=== PATIENT | female | born 1990 | race Caucasian/White ===

== ENCOUNTER 2016-12-06 13:20 | Emergency (ER) | payer MEDICAID ==
[2016-12-06] MEDS ORDERED: Bacitracin Oint 1 GM U/D Packet TOP ONE (13:37)
[2016-12-06] MEDS ORDERED: Diphtheria,Pertussis(Acell),Tetanus Vaccine 0.5 ML SDV IM ONE (13:37)
[2016-12-06 13:40] VITALS: BP 130/77
[2016-12-06] MEDS ORDERED: Lidocaine 1% with EPINEPHrine 1:100,000 50 ML MDV SUBCUT SCH (13:45)
--- NOTE | 2016-12-06 14:26 | EDM.PDOC ---
ED HPI GENERAL MEDICAL PROBLEM - General Chief Complaint: Laceration Stated Complaint: CUT LT WRIST ON GLASS Time Seen by Provider: 12/06/16 14:21 Source of Information: Reports: Patient, Family (Mom) History Limitations: Reports: No Limitations - History of Present Illness INITIAL COMMENTS - FREE TEXT/NARRATIVE: Pt was cut by glass out of a picture frame today. Unsure of tetanus status. Onset: Today Onset Date: 12/06/16 Onset Time: 12:30 Location: Reports: Upper Extremity, Left Quality: Reports: Burning Severity: Moderate Improves with: Reports: None Worsens with: Reports: None Context: Reports: Trauma Associated Symptoms: Reports: No Other Symptoms - Related Data Allergies Allergy/AdvReac Type Severity Reaction Status Date / Time No Known Allergies Allergy Verified 12/06/16 13:35 Home Meds: Home Meds NK [No Known Home Meds] 09/02/14 [History] Past Medical History - Past Surgical History GI Surgical History: Reports: Appendectomy Female Surgical History: Reports: Section Social & Family History - Tobacco Use Smoking Status *Q: Current Every Day Smoker Years of Tobacco use: 5 Packs/Tins Daily: 0.5 - Alcohol Use Days Per Week of Alcohol Use: 0 - Recreational Drug Use Recreational Drug Use: Yes Recreational Drug Type: Reports: Marijuana/Hashish ED ROS GENERAL - Review of Systems Review Of Systems: See Below Constitutional: Reports: No Symptoms HEENT: Reports: No Symptoms Respiratory: Reports: No Symptoms Cardiovascular: Reports: No Symptoms Skin: Reports: Other (laceration to left wrist) ED EXAM, SKIN/RASH Exam: See Below Exam Limited By: No Limitations General Appearance: Alert, WD/WN, No Apparent Distress Ears: Normal External Exam, Normal Canal, Hearing Grossly Normal, Normal TMs Nose: Normal Inspection, Normal Mucosa, No Blood Throat/Mouth: Normal Inspection, Normal Lips, Normal Teeth, Normal Gums, Normal Oropharynx, Normal Voice, No Airway Compromise Head: Atraumatic, Normocephalic Neck: Normal Inspection, Supple, Non-Tender, Full Range of Motion Respiratory/Chest: No Respiratory Distress, Lungs Clear, Normal Breath Sounds, No Accessory Muscle Use, Chest Non-Tender Cardiovascular: Normal Peripheral Pulses, Regular Rate, Rhythm, No Edema, No Gallop, No JVD, No Murmur, No Rub Neurological: Alert, Oriented, CN II-XII Intact, Normal Cognition, Normal Gait, Normal Reflexes, No Motor/Sensory Deficits Psychiatric: Normal Affect, Normal Mood Skin: Wound/Incision (laceration to left wrist) Lymphatic: No Adenopathy ED SKIN PROCEDURES - Laceration/Wound Repair Left Distal Wrist Lac/Wound length In cm: 3.5 Appearance: Subcutaneous Distal NVT: Neuro & Vascular Intact, No Tendon Injury Anesthetic Type: Local Local Anesthesia - Lidocaine (Xylocaine): 1% with EPI Local Anesthetic Volume: 5cc Skin Prep: Chlorhexidine (Hibiciens) Exploration/Debridement/Repair: Wound Explored, Explored to Base, Wound Margins Revised Closed with: Sutures Suture Size: 4-0 # of Sutures: 6 Suture Type: Prolene Sterile Dressing Applied: Nurse Tetanus Status Addressed: Yes Complications: No Course - Vital Signs Last Recorded V/S: Last Vital Signs Temp 97.5 F 12/06/16 13:38 Pulse 78 12/06/16 13:38 Resp 14 12/06/16 13:38 BP 130/77 12/06/16 13:38 Pulse Ox 98 12/06/16 13:38 - Orders/Labs/Meds Orders: Active Orders 24 hr Category Date Time Status Vaccines to be Administered [RC] PER UNIT ROUTINE Care 12/06/16 13:37 Active Lidocaine 1% w/EPINEPHrine [Xylocaine 1% with Med 12/06/16 13:45 Active EPINEPHrine 1:100,000] 3 ml SUBCUT STAT Medication Orders Lidocaine/Epinephrine (Xylocaine 1% With Epinephrine 1:100,000) 3 ml SUBCUT STAT DRAKE Last Admin: 12/06/16 13:49 Dose: 3 ml Meds: Medications Generic Name Dose Route Start Last Admin Trade Name Freq PRN Reason Stop Dose Admin Lidocaine/Epinephrine 3 ml 12/06/16 13:45 12/06/16 13:49 Xylocaine 1% With Epinephrine 1:100,000 SUBCUT 3 ml STAT DRAKE Administration Discontinued Medications Generic Name Dose Route Start Last Admin Trade Name Freq PRN Reason Stop Dose Admin Bacitracin 1 dose 12/06/16 13:37 12/06/16 13:50 Bacitracin Oint 1 Gm TOP 12/06/16 13:38 1 dose ONETIME ONE Administration Diphtheria/Tetanus/Acell Pertussis 0.5 ml 12/06/16 13:37 12/06/16 13:51 Adacel IM 12/06/16 13:38 0.5 ml .ONCE ONE Administration Departure - Departure Time of Disposition: 14:24 Disposition: Home, Self-Care 01 Condition: Good Clinical Impression: Laceration of left wrist Qualifiers: Encounter type: initial encounter Qualified Code(s): S61.512A - Laceration without foreign body of left wrist, initial encounter - Discharge Information Instructions: Laceration Care, Adult, [id number] Referrals: PCP,None [Primary Care Provider] - Additional Instructions: Tetanus updated with Tdap today. Pt to have stitches removed in 9 days. No swimming. Monitor for infection. Followup as needed. - Problem List & Annotations (1) Laceration of left wrist SNOMED Code(s): 626748253 Code(s): S61.512A - LACERATION WITHOUT FOREIGN BODY OF LEFT WRIST, INIT ENCNTR Status: Acute Priority: Medium Current Visit: Yes Qualifiers: Encounter type: initial encounter Qualified Code(s): S61.512A - Laceration without foreign body of left wrist, initial encounter - My Orders Last 24 Hours: My Active Orders 12/06/16 13:37 Vaccines to be Administered [RC] PER UNIT ROUTINE 12/06/16 13:45 Lidocaine 1% w/EPINEPHrine [Xylocaine 1% with EPINEPHrine 1:100,000] 3 ml SUBCUT STAT - Assessment/Plan Last 24 Hours: My Active Orders 12/06/16 13:37 Vaccines to be Administered [RC] PER UNIT ROUTINE 12/06/16 13:45 Lidocaine 1% w/EPINEPHrine [Xylocaine 1% with EPINEPHrine 1:100,000] 3 ml SUBCUT STAT
== END 2016-12-06 15:16 | disposition home or self-care (01) ==
LOC: JP.ED 13:20
DX: S61.512A Laceration without foreign body of left wrist, initial encounter (principal); F17.210 Nicotine dependence, cigarettes, uncomplicated; Z90.49 Acquired absence of other specified parts of digestive tract; W25.XXXA Contact with sharp glass, initial encounter
CPT/HCPCS: 12002; 90471; 90715; 99283-25

== ENCOUNTER 2020-06-11 05:32 | Inpatient (IN) | payer MEDICAID ==
[2020-06-11] MEDS ORDERED: Lactated Ringers 1,000 ML IV SCH (05:45)
[2020-06-11] MEDS ORDERED: Oxytocin 10 Units/1 ML SDV ONE ×2 (06:35→07:00)
[2020-06-11] MEDS ORDERED: cefOXitin 1 GM Vial ONE (06:35)
[2020-06-11] MEDS ORDERED: cefOXitin 2 GM Vial ONE (07:00)
[2020-06-11] MEDS ORDERED: ePHEDrine 50 MG/ML SDV ONE (07:00)
[2020-06-11] MEDS ORDERED: Ampicillin/Sulbactam Na 3 GM in Sodium Chloride 0.9% 100 ML IV ONE (07:15)
[2020-06-11] MEDS ORDERED: Lactated Ringers 1,000 ML ONE (07:35)
[2020-06-11] MEDS ORDERED: Ondansetron 4 MG/2 ML SDV ONE (07:59)
[2020-06-11] MEDS ORDERED: Dexamethasone 4 MG/ML SDV ONE (07:59)
[2020-06-11] MEDS ORDERED: HYDROmorphone/Normal Saline 15 MG/30 ML PCA IV PRN (09:40)
[2020-06-11] MEDS ORDERED: hydrOXYzine HCL 100 MG/2 ML SDV IM PRN (09:42)
[2020-06-11] MEDS ORDERED: Ondansetron 4 MG/2 ML SDV IVPUSH PRN (09:43)
[2020-06-11] MEDS ORDERED: Naloxone 0.4 MG/ML SDV IV PRN (10:00)
[2020-06-11] MEDS: Acetaminophen 500 MG Tab PO SCH ×3 (10:17→22:27)
[2020-06-11] MEDS: Ibuprofen 600 MG Tab PO SCH ×2 (11:58→18:34)
[2020-06-11] MEDS: Dextrose 5%-Lactated Ringers 1,000 ML IV SCH ×3 (12:18→21:36)
[2020-06-11] MEDS: Ampicillin/Sulbactam Na 1.5 GM in Sodium Chloride 0.9% 50 ML IV SCH ×2 (12:18→18:34)
[2020-06-12] MEDS: Ampicillin/Sulbactam Na 1.5 GM in Sodium Chloride 0.9% 50 ML IV SCH ×3 (00:39→11:59)
[2020-06-12] MEDS: Ibuprofen 600 MG Tab PO SCH ×4 (00:39→17:49)
[2020-06-12] MEDS ORDERED: Sodium Chloride 0.9% 10 ML Syringe IV PRN (08:07)
[2020-06-12] MEDS: Acetaminophen 500 MG Tab PO SCH ×4 (08:18→21:57)
[2020-06-12] MEDS: Bisacodyl 5 MG Tab PO SCH ×2 (08:44→21:57)
[2020-06-12] MEDS: Docusate Sodium 100 MG Cap PO SCH ×2 (08:44→21:57)
--- NOTE | 2020-06-12 10:56 | PN ---
DATE OF SERVICE: 06/12/2020 SUBJECTIVE: Tammie is postoperative day 1 following a section with delivery of viable female. Pain has been controlled during the night. She has had her Dominique removed earlier this morning. Remainder of review of systems negative for any pertinent positives and negatives. OBJECTIVE: GENERAL: Tammie is a pleasant 29-year-old female. She is alert, orientated. HEENT: Negative. NECK: Supple. HEART: Regular rate and rhythm. LUNGS: Clear. ABDOMEN: Soft. Incision glued. EXTREMITIES: Without peripheral edema. ASSESSMENT: Repeat section and bilateral tubal ligation. Date of procedure 06/11/2020. Surgeon: Minh Wolfe MD. PLAN: 1. Saline lock IV. 2. May shower. 3. Discontinue EDUCATION AND OUTREACH COORDINATOR and continuous pulse ox. 4. Discontinue telemetry. 5. Colace 100 mg p.o. b.i.d. 6. Dulcolax 10 mg tabs b.i.d. p.o. 7. Dilaudid 2 mg every 4 hours p.r.n. pain. 8. Continue use of incentive spirometer. 9. We will evaluate p.r.n. or in a.m. Raquel Saunders PA-C /[id number]
[2020-06-12] MEDS: HYDROmorphone 2 MG Tab PO PRN ×2 (13:07→19:28)
[2020-06-13] MEDS: Ibuprofen 600 MG Tab PO SCH ×2 (01:55→06:04)
[2020-06-13 03:38] VITALS: BP 138/77; PULSE 93
[2020-06-13] MEDS: Acetaminophen 500 MG Tab PO SCH ×2 (03:40→10:15)
[2020-06-13] MEDS: HYDROmorphone 2 MG Tab PO PRN ×2 (03:43→10:14)
--- NOTE | 2020-06-13 10:12 | DISCH ---
ADMISSION DIAGNOSIS: Term . DISCHARGE DIAGNOSES: 1. Repeat section and bilateral tubal ligation for term and desires permanent sterilization. 2. Date of procedure: 06/11/2020. Surgeon: Minh Wolfe MD. HISTORY: Tammie Rascon is a pleasant 29-year-old female who after preoperative evaluation and discussion of possible risks and possible complications, wishes to proceed with surgical procedure. HOSPITAL COURSE: Tammie had her surgery on 06/11/2020. She had no complications. On postoperative day #1, she was started on oral pain medications and stool stimulation. She was up ambulating. Vital signs were stable. On 06/13/2020, day of discharge, oral intake was adequate. Pain was well controlled. She had a bowel movement and able to be discharged to home in good condition. PHYSICAL EXAMINATION: GENERAL: Tammie Rascon is a pleasant 29-year-old female. VITAL SIGNS: Height is 5 feet 6 inches, weight is 214 pounds. TPR 94.6, 93, 16, blood pressure 138/77. HEENT: Negative. NECK: Supple. HEART: Regular rate and rhythm. LUNGS: Clear. ABDOMEN: section has been surgically glued and looks good. EXTREMITIES: Without peripheral edema. DISPOSITION: Discharged to home. CONDITION: Stable and improving. FOLLOWUP: Appointment with Raquel Saunders PA-C, 06/21/2020 at 10 a.m.; Lexi Jarrell CNM, lens gauger, appointment to be made. HOME MEDICATIONS: 1. Dilaudid 2 mg every 6 hours p.r.n. pain, #28. 2. Motrin 600 mg p.o. q.6 hours, #40 p.r.n. pain. 3. Tylenol Extra-Strength 1000 mg p.o. q.6 hours p.r.n. pain, #100. 4. She is to resume her vitamins. DIET: Usual diet as tolerated. Drink 8 to 10 glasses of water a day. ACTIVITY: As tolerated. No lifting greater than 10 pounds, but may lift the baby in car seat. Driving: Do not drive for 1 week and within 8 hours of taking narcotic pain medication. Shower/bathing: May shower. No tub bathing or swimming for 6 weeks. Keep operative site clean and dry. Wear abdominal binder until incision is healed. SPECIAL INSTRUCTIONS: Notify provider if any fever, increased pain, swelling, redness, drainage, nausea, or vomiting. Use incentive spirometer 10 times every hour while awake. /[id number]
[2020-06-13] MEDS: Docusate Sodium 100 MG Cap PO SCH (10:15)
[2020-06-13] MEDS: Bisacodyl 5 MG Tab PO SCH (10:16)
--- NOTE | 2020-07-02 13:00 | OR ---
DATE OF PROCEDURE: 06/11/2020 SURGEON: Minh Wolfe MD PREOPERATIVE DIAGNOSES: 1. Term with history of previous section. 2. Multiparity. POSTOPERATIVE DIAGNOSES: 1. Term with history of previous section. 2. Multiparity. OPERATIVE PROCEDURES: 1. Repeat section (06166). 2. Bilateral tubal ligation (96435). ANESTHESIA: Spinal. FIRE ADJUSTER: Lexi Jarrell CNM INDICATIONS FOR PROCEDURE: A 29-year-old female presenting for a scheduled repeat section. She has had previous sections and otherwise had an uncomplicated . She meets Ethics Committee Criteria for a bilateral tubal ligation and that will be undertaken as well. Potential risks of the procedure including bleeding, infection, injuring mother and/or baby, and possible problems with tubal ligation in terms of failure to prevent either intrauterine or ectopic over time were all gone over, and the patient wishes to proceed. DETAILS OF PROCEDURE: The patient was taken to the operating room and after spinal anesthetic was placed, she was positioned in a supine position with a roll underneath the right hip. Dominique catheter inserted. The abdomen prepped and draped. Previous Pfannenstiel incision was then reused and carried down through the skin and subcutaneous tissue, and through the anterior rectus sheath, Subrectus sheath flaps were then raised superiorly and inferiorly, and the midline fascia and peritoneum were then divided. Peritoneal reflection of bladder on the uterus was then divided, and low transverse uterine incision was made, and a viable baby was delivered through a vertex presentation. Cord was clamped and cut, and routine care given off the field per the nurse administrative underwriter, Lexi Jarrell CNM. The patient was given IV and intrauterine Pitocin and IV cefoxitin. Good uterine contractions were noted. The placenta and membranes were then delivered without difficulty. The uterus was then closed with 2 layers of 2-0 Vicryl stitch, which was also used to approximate the bladder flap over the uterine incision. At this point, on each side, the uterine tube was identified and traced out to the level of fimbria to confirm its identity. The tube adjacent to the uterus was then divided between 2 clamps removing roughly 1 cm of tube in each side. Both the remaining ends on each side were then electrically cauterized and suture ligated with 3-0 Prolene stitch. At this point, no further problems were noted. The uterus was placed back into the peritoneal cavity. The midline musculature and peritoneum were then approximated with #2 Vicryl stitch as was the anterior rectus sheath, and the subcutaneous tissue was irrigated with cefoxitin- containing saline solution as well and the subcutaneous tissue approximated with some 3-0 and 4-0 Vicryl stitch deep and then 4-0 Vicryl subcuticular stitch along with surgical glue was applied, and the patient was taken to the recovery room in satisfactory condition. Per ACOG guidelines, Lexi Jarrell's assistance was indicated in this case. Minh Wolfe MD /[id number]
== END 2020-06-13 11:20 | disposition home or self-care (01) | DRG 785 ==
LOC: JP.SDS 05:32 → JP.SDSSCHI 08:06 → JP.MS 08:44
PROVIDERS: ADMIT Surgery; ATTEND Surgery
PROC: 10D00Z1 Extraction of Products of Conception, Low, Open Approach (ICD-10-PCS; principal; 2020-06-11)
PROC: 0UB70ZZ Excision of Bilateral Fallopian Tubes, Open Approach (ICD-10-PCS; 2020-06-11)
DX: O34.211 Maternal care for low transverse scar from previous cesarean delivery (principal); Z87.891 Personal history of nicotine dependence; Z37.0 Single live birth; Z3A.38 38 weeks gestation of pregnancy
CPT/HCPCS: 36415; 80305-QW; 85027; 86850; 86900; 86901; 88302; 88307; A9270-GY; J0295; J0694; J1100; J1170; J2405; J2590; J7120; J7121